=== PATIENT | female | born 1965 | race Caucasian/White ===

== ENCOUNTER 2016-06-06 17:22 | Inpatient (IN) ==
--- NOTE | 2016-06-06 18:23 | PROVIDER DOCUMENTATION ---
HPI-Chest Pain - General Chief Complaint: Chest Pain Stated Complaint: CP Time Seen by Provider: 06/06/16 18:20 Source: patient Allergies/Adverse Reactions: Patient Allergies Allergy/AdvReac Type Severity Reaction Status Date / Time cephalexin monohydrate * AdvReac NAUSEA/VOMI Verified 06/06/16 17:59 [From Keflex] TING codeine AdvReac NAUSEA/VOMI Verified 06/06/16 17:59 TING Home Medications: Home Medication List Medication Instructions Recorded Confirmed Last Taken Type Multivit with Calcium,Iron,Min 1 each PO DAILY 09/16/15 06/07/16 06/05/16 History [Multiple Vitamins For Women] Brexpiprazole [Rexulti] 0.5 mg PO DAILY 06/07/16 06/07/16 06/05/16 History ATORVAstatin [Lipitor] 80 mg PO QHS #0 tablet 06/09/16 Unknown Rx Acetaminophen [Tylenol] 650 mg PO Q6H PRN PRN #0 tablet 06/09/16 Unknown Rx Albuterol 2.5MG/Ipratrop 0.5MG 3 ml INH Q2H PRN PRN #0 neb 06/09/16 Unknown Rx [Duoneb (A & A)] Albuterol 2.5MG/Ipratrop 0.5MG 3 ml INH RTQ4H #0 neb 06/09/16 Unknown Rx [Duoneb (A & A)] Aspirin 81 mg PO DAILY #0 chewtab 06/09/16 Unknown Rx Azithromycin 500 mg/Ns [Zithromax 500 mg IV Q24H #7 ivpb 06/09/16 Unknown Rx 500 mg/Ns] CefTRIAXONE 1 GM/NS [Rocephin 1 1 gm IV Q24HR #7 ivpb 06/09/16 Unknown Rx gm/Ns] Chlordiazepoxide [Librium] 25 mg PO QHS #0 capsule 06/09/16 Unknown Rx Cilostazol [Pletal] 100 mg PO DAILY #0 tablet 06/09/16 Unknown Rx Clopidogrel [Plavix] 75 mg PO DAILY #0 tablet 06/09/16 Unknown Rx Diltiazem C.d. [Cardizem Cd] 240 mg PO DAILY #0 capsule 06/09/16 Unknown Rx Isosorbide Mononitrate E.r. [Imdur] 60 mg PO BID #0 tablet 06/09/16 Unknown Rx Levothyroxine [Synthroid] 100 microgm PO DAILY@07 #0 tablet 06/09/16 Unknown Rx Methylprednisolone Sod Succ 80 mg IV Q8H #0 vial 06/09/16 Unknown Rx [Solu-Medrol] Montelukast [Singulair] 10 mg PO DAILY #0 tablet 06/09/16 Unknown Rx Omeprazole [Prilosec] 20 mg PO DAILY@07 #0 capsule 06/09/16 Unknown Rx Ondansetron [Zofran] 4 mg IV Q4H PRN PRN #0 vial 06/09/16 Unknown Rx Ranolazine E.r. [Ranexa] 500 mg PO BID #0 tablet 06/09/16 Unknown Rx Sucralfate [Carafate Liquid] 1 gm PO Q6HR #0 udc 06/09/16 Unknown Rx Trazodone [Desyrel] 50 mg PO QHS #0 tablet 06/09/16 Unknown Rx Vortioxetine Hydrobromide 20 mg PO DAILY 06/09/16 Unknown Rx [Trintellix] - History of Present Illness-CP Nature of Presenting Problem: Pt is a 50 yof who presents to ER with CC of C/P with onset of 0. Pt reports that she was coughing hard before the chest pain started and her pain radiated to her jaw and reports that it felt like her last MT. Pt has hx of MT in October of last year and had 7 stents put in. 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 Pt also complains of N and pain on deep inspiration and reports that she was recently diagnosed with a URI and bronchitis and is currently taking antibiotics. Location: reports: central, epigastric Chest Pain Radiation: reports: jaw Quality of Pain: reports: tightness Severity in ED: moderate Onset/Duration: 1-3 hours ago Timing: improving Modifying Factors: worse with: coughing Associated Symptoms: reports: nausea, shortness of breath. denies: abdominal pain, back pain, diaphoresis, dizziness, edema, fatigue, fever/chills, headache , heartburn, rash, swelling/lump in chest, syncope, vomiting, weakness Nitro Today/Relief: no nitro taken today Aspirin Treatment Today: no aspirin today Similar Symptoms Previously?: Yes (MT in October of last year) Review of Systems - Adult - REVIEW OF SYSTEMS - ADULT Constitutional: denies: chills, fever, fatique, night sweats, weight gain, weight loss Eyes: reports: no symptoms reported Ears, Nose, Mouth & Throat: reports: no symptoms reported Cardiovascular: reports: chest pain, palpitations. denies: edema, heart murmur , irregular heart rate, orthopnea, poor circulation, PND, syncope Respiratory: reports: chronic cough, cough, dyspnea on exertion. denies: excessive sputum production, hemoptysis, pleurisy, shortness of breath, wheezing Gastrointestinal: reports: nausea. denies: abdominal pain, hematemesis, constipation, diarrhea, difficulty swallowing, frequent heartburn, poor appetite , rectal bleeding, vomiting Genitourinary: reports: no symptoms reported Musculoskeletal: reports: no symptoms reported Integumentary: reports: no symptoms reported Neurological: reports: no symptoms reported Psychiatric: reports: no symptoms reported Endocrine: reports: no symptoms reported Hematologic/Lymphatic: reports: no symptoms reported Allergic/Immunologic: reports: no symptoms reported All Other Systems: Reviewed and Negative Past History - Adult - PAST MEDICAL HISTORY-ADULT Review of Records: reports: Nursing Assessment Review, Medications Reviewed Additional History: taking blood thinner - IMMUNIZATION STATUS Childhood Immunizations: See Nurse Assessment Flu Vaccine: See Nurse Assessment Physical Exam-General - PHYSICAL EXAM-ADULT Initial Vital Signs Reviewed: Yes - CONSTITUTIONAL General Appearance: appears well, alert, mild distress, anxious. negative: no apparent distress, moderate distress, severe distress, cachetic, obese, thin, lethargic, slow to respond, obtunded, combative - NECK Neck: non-tender, full range of motion, supple. negative: C-spine tenderness, limited range of motion, lymphadenopathy - RESPIRATORY Respiratory: lungs clear, normal breath sounds. negative: chest non-tender, respiratory distress, decreased breath sounds, accessory muscle use, wheezing - CARDIOVASCULAR Cardiovascular: normal peripheral pulses, tachycardia. negative: regular rate, rhythm, bradycardia, diastolic murmur, systolic murmur, irregularly irregular - CHEST (BREASTS) Chest/Breast: no masses/lumps, tenderness (L sided chest tender on palpation). negative: no tenderness - GASTROINTESTINAL (ABDOMEN) Abdominal Exam: normal bowel sounds, non tender, soft. negative: tenderness, mass - SKIN Integumentary: normal color, normal turgor, warm/dry. negative: abrasion(s), erythema, laceration(s), swelling, tenderness - NEUROLOGIC Neurologic: grossly normal, no motor/sensory deficits. negative: focal weakness , motor weakness, sensory deficit - PSYCHIATRIC Psych/Mental Status: normal thought content, normal thought process, oriented x 3, anxious, disheveled. negative: normal mood/affect, disoriented x 3, depressed affect, paranoid, tearful Progress - PLAN OF CARE/RESULTS Progress/Plan/Lab Results: POC: Chest X-ray/Cardiac enzymes Vital Signs - 24 hr 06/06/16 06/06/16 17:25 18:37 Temperature 97.6 F Pulse Rate 112 H 100 H Respiratory 18 16 Rate Blood Pressure 191/66 142/67 O2 Sat by Pulse 96 95 Oximetry Orders Category Date Time Status Cardiac Monitoring DIRECTED Care 06/06/16 18:00 Active Saline Loc NOW Care 06/06/16 18:00 Active CHEST-2 VIEWS [RAD] Stat Exams 06/06/16 18:00 Taken CBC WITH ELECTRONIC DIFF [HEME] Stat Lab 06/06/16 17:50 Completed CK PROFILE [SP CHEM] Stat Lab 06/06/16 17:50 Completed COMPREHENSIVE METABOLIC PANEL [CHEM] Stat Lab 06/06/16 17:50 Completed MAGNESIUM [CHEM] Stat Lab 06/06/16 17:50 Completed PRO B-NATRIURETIC PEPTIDE Stat Lab 06/06/16 17:50 Completed PROTIME WITH INR [COAG] Stat Lab 06/06/16 17:50 Completed PTT [COAG] Stat Lab 06/06/16 17:50 Completed TROPONIN T Stat Lab 06/06/16 17:50 Completed Insulin Human Regular [Humulin R] Med 06/06/16 19:04 Discontinued 100 unit IV NOW ONE EKG [EKG] Stat Ther 06/06/16 17:25 Ordered EKG [EKG] Stat Ther 06/06/16 18:00 Ordered Laboratory Tests 06/06/16 06/06/16 06/06/16 17:50 17:50 17:50 WBC RBC Hgb Hct MCV MCH MCHC RDW Std Deviation Plt Count MPV Immature Gran % (Auto) Neut % (Auto) Lymph % (Auto) [place] % (Auto) Eos % (Auto) Baso % (Auto) Immature Gran # (Auto) Neut # (Auto) Lymph # (Auto) [place] # (Auto) Eos # (Auto) Baso # (Auto) PT 9.3 INR 0.91 PTT (Actin FS) 25.7 Sodium 130 L Potassium 4.3 Chloride 94 L Carbon Dioxide 18 L Anion Gap 18 BUN 21 Creatinine 0.9 Estimated GFR/1.73 m2 > 60 BUN/Creatinine Ratio 23 Glucose 448 H* Calculated Osmolality 283 Calcium 8.7 L Magnesium 1.9 Total Bilirubin 0.18 L AST 22 ALT 16 Alkaline Phosphatase 64 Creatine Kinase 55 Troponin T Jwi-[id number]-Dcwsedsfpft Pept 147 Total Protein 6.6 Albumin 3.8 Globulin 2.8 Albumin/Globulin Ratio 1.4 06/06/16 06/06/16 17:50 17:50 WBC 5.34 RBC 4.61 Hgb 14.4 Hct 41.8 MCV 90.7 MCH 31.2 H MCHC 34.4 RDW Std Deviation 13.1 Plt Count 259 MPV 10.2 Immature Gran % (Auto) 0.0 Neut % (Auto) 86.7 H Lymph % (Auto) 9.7 L [place] % (Auto) 3.4 Eos % (Auto) 0.0 Baso % (Auto) 0.2 Immature Gran # (Auto) 0.00 Neut # (Auto) 4.63 Lymph # (Auto) 0.52 L [place] # (Auto) 0.18 Eos # (Auto) 0.00 Baso # (Auto) 0.01 PT INR PTT (Actin FS) Sodium Potassium Chloride Carbon Dioxide Anion Gap BUN Creatinine Estimated GFR/1.73 m2 BUN/Creatinine Ratio Glucose Calculated Osmolality Calcium Magnesium Total Bilirubin AST ALT Alkaline Phosphatase Creatine Kinase Troponin T < 0.010 Eec-O-Vrspltcylrn Pept Total Protein Albumin Globulin Albumin/Globulin Ratio - EKG 1 Time of EKG reading by physician:: 17:26 EKG Read and Signed by:: Roger Zamarripa EKG Interpretation (*Must complete 3 of following elements*): Abnormal ( Possible L atrial enlargement) Rate: 110 Rhythm: Sinus tachycardia - XRAY 1 XRAY: Bilateral XRAY Study: Chest Impression: See EMR Report XRAY Interpretation: No acute findings - CONSULTS/PCP/HOSPITALIST Notification #1 *Consult/PCP/Hospitalist*: Dr. Marquez (Hospitalist) Time Discussed: 19:06 Consult Disposition: Admit Departure - Departure Time of Disposition Order: 19:06 DIAGNOSIS: Hyperglycemia Chest pain Qualifiers: Chest pain type: unspecified Qualified Code(s): R07.9 - Chest pain, unspecified HTN (hypertension) Qualifiers: Hypertension type: unspecified secondary hypertension Qualified Code(s): I15.9 - Secondary hypertension, unspecified Disposition: ADMITTED INPATIENT 09 Certified Medical Emergency: Emergent Condition: Stable Attestation - Scribe Verification/Attestation Scribe:: Bjorn Valdes Acting as Scribe for:: Jose Juarez Scribe documention review:: This chart was documented by a scribe and accurately reflects the service the provider performed and the decisions made by the provider.
[2016-06-06 18:30] LABS: BASO% 0.2 % (0.0-0.8); HEMATOCRIT 41.8 % (37.0-47.0); HEMOGLOBIN 14.4 g/dL (12.0-16.0); LYMPH# 0.52 X1000 (1.2-3.4); LYMPH% 9.7 % (20.5-51.1); MANUAL DIFF NEEDED? NO; MCH 31.2 PG (27-31); MCHC 34.4 g/dL (33-37); MCV 90.7 FL (81-99); MONO# 0.18 X1000 (0.11-0.59); MONO% 3.4 % (1.7-9.3); MPV 10.2 FL (7.4-10.4); NEUT% 86.7 % (42.2-75.2); PLT 259 X1000 (130-400); RBC 4.61 XMIL (4.2-5.4)
[2016-06-06 18:33] LABS: PROTIME 9.3 Seconds (9.2-11.7); PTT 25.7 Seconds (22.0-36.0)
[2016-06-06 18:34] LABS: INR 0.91
[2016-06-06 18:44] LABS: AGAP 18; ALBUMIN 3.8 g/dL (3.5-5.0); ALKALINE PHOSPHATASE 64 U/L (32-104); BUN 21 mg/dL (8-22); CALCIUM 8.7 mg/dL (8.8-10.2); CHLORIDE 94 mmol/L (98-107); CK PROFILE 55 U/L (24-173); COSMO 283; GOT 22 U/L (10-30); GPT 16 U/L (10-36); MAGNESIUM 1.9 mg/dL (1.5-2.7); POTASSIUM 4.3 mmol/L (3.5-5.1); SODIUM 130 mmol/L (136-145); TCO2 18 mmol/L (25-35); TOTAL BILIRUBIN 0.18 mg/dL (0.20-1.00); TOTAL PROTEIN 6.6 g/dL (6.3-8.3)
[2016-06-06] MEDS ORDERED: HUMULIN R IV ONE ×3 (19:04→19:49)
[2016-06-06] MEDS ORDERED: NITROGLYCERIN TOP ONE (19:08)
[2016-06-06] MEDS ORDERED: MORPHINE IV ONE (19:08)
[2016-06-06] MEDS ORDERED: ZOFRAN IV ONE (19:08)
[2016-06-06] MEDS ORDERED: NS 1,000 ML IV ONE ×2 (19:49→23:30)
--- NOTE | 2016-06-06 21:07 | HISTORY AND PHYSICAL ---
Patient of Dr. Ellsworth's office. REASON FOR ADMISSION: Chest pain 3 hours ago. HISTORY OF PRESENT ILLNESS: Ms. Nichols is a 50-year-old lady with past medical history of coronary artery disease status post 6 stents, type 1 diabetes uncontrolled, hypertension, hypothyroidism, hyperlipidemia, seasonal allergic rhinitis, GERD who comes in today after a 3 hour episode of retrosternal chest pain radiating to her jaw associated with tightness of her throat. She oddly enough denies any shortness of breath, palpitations, nausea, vomiting, diaphoresis. No antecedent leg swelling, pain. No PND or orthopnea. Two few days ago she was treated at urgent care center for bronchitis and was given Z-Robert and steroids. Subsequently she has been having polyuria, polydipsia along with this but not very severe. She also has been coughing up yellowish sputum and has had a subjective low-grade fever. This was all preceded by 4-day history of upper respiratory symptoms i.e. ocular nasal pruritus, postnasal drip. REVIEW OF SYSTEMS: Patient denies any GI or complaints. No neurological complaints of note. Her 12 system review is negative. Positive findings per HPI. ALLERGIES: Cephalosporins and codeine. HOME MEDICATIONS: She is on aspirin 81 mg daily, Wellbutrin 300 mg daily, Invokana 100 mg daily, Pletal 100 mg daily, Plavix 75 mg daily, Dexilant 60 mg daily, Cardizem CD 240 mg daily, Prozac 20 mg b.i.d. , Imdur 60 mg b.i.d., Singulair 10 mg daily, tablets once a day, pravastatin 20 mg daily, Ranexa 500 mg daily, levothyroxine 100 mcg daily. Insulin pump she takes 1 unit a day. FAMILY HISTORY: Of heart disease in her father. Melanoma in first-degree relatives, first- degree relatives also with type 1 diabetes. SURGICAL HISTORY: She has had bilateral carpal tunnel trigger finger release, had laser surgery to her eye and right foot surgery and 6 stents her eye. SOCIAL HISTORY: She is and does not smoke or use illicit drugs but admits to drinking about 6 glasses of wine a day and is trying to quit this in a detox program. LAB WORK: White count 5000, hemoglobin and hematocrit 14, 41, platelets 259,000. Sodium 130, BUN 21, creatinine 0.9, bicarb 18, anion gap 18, glucose 448, magnesium 1.9. Troponin is normal. CK is normal. PT, PTT normal. EKG. Sinus tachycardia. Heart rate of 110, possible left atrial enlargement. Checks x-ray has not been dictated and is pending at this time. PHYSICAL EXAMINATION: VITAL SIGNS: Blood pressure is 142/69, heart rate 100, respirations 16, temperature is 97.6, 95% room air. GENERAL: She is a middle-aged woman not in acute distress. She is A, O x3. Normal mood and affect. HEENT: Head is normocephalic, atraumatic. LYNSEY, EOMI. Is anicteric and not pale. ENT exam is grossly normal. NECK: Supple. No JVD or carotid bruit, no thyromegaly. CHEST: Clear to auscultation both lung ennis. CARDIOVASCULAR: First and second heart sounds heard, 2/6 systolic murmur heard in all areas, rhythm is regular. ABDOMEN: Protuberant, soft, nontender, megaly, bowel sounds normal. RECTAL: Deferred at this time. EXTREMITIES: Pulses distally intact with good volume and symmetrical, no edema, clubbing or peripheral cyanosis. NEUROLOGIC SYSTEM: Grossly intact. No focal deficits. SKIN: Intact. No breakdown, lesions. MUSCULAR EXAM: Grossly normal. ASSESSMENT: 1. Chest pain syndrome in patient with coronary artery disease. 2. Uncontrolled diabetes type 1 patient with aggravated by steroid treatment. 3. Hypertension. 4. Hyperlipidemia. 5. Seasonal allergic rhinitis. 6. Acute bronchitis. 7. Hypothyroidism. 8. Peripheral arterial disease probable. PLAN: At this time will do serial cardiac enzymes, continue patient on antiplatelet therapy. Optimize her statin therapy by switching from Pravachol to Lipitor. Optimize the dose of Ranexa increasing from 500 daily to 500 b.i.d. Will consult cardiology see patient. Patient has a new onset systolic murmur. Will get an echocardiogram to evaluate this. Will need further cardiology and further plan of assessment of patient's chest pain. Strongly recommend this patient be on ARB or BOZENA being that she has documented retinopathy follow urinalysis to see there is any significant degree of proteinuria. Patient will be on a sliding scale as she has very labile sugars and will aggressively hydrate patient in light of her hyperglycemia. Deep vein thrombosis prophylaxis will be with Lovenox.
[2016-06-06] MEDS ORDERED: ATIVAN IV PRN (23:30)
[2016-06-06] MEDS ORDERED: HUMALOG SUBQ SCH (23:30)
[2016-06-06] MEDS ORDERED: NITROGLYCERIN TOP SCH (23:30)
[2016-06-06] MEDS ORDERED: RANEXA PO SCH (23:30)
[2016-06-06] MEDS: DUONEB (A & A) INH SCH (23:30)
[2016-06-06] MEDS ORDERED: TYLENOL PO PRN (23:30)
[2016-06-06] MEDS ORDERED: MORPHINE IV PRN (23:30)
[2016-06-06] MEDS ORDERED: LIPITOR PO SCH (23:30)
[2016-06-06] MEDS ORDERED: LOVENOX SUBQ SCH (23:30)
[2016-06-06] MEDS ORDERED: ZOFRAN IV PRN (23:30)
[2016-06-06] MEDS ORDERED: THIAMINE 100 MG in NS 50 ML IV ONE (23:30)
[2016-06-07 00:35] LABS: HEMOGLOBIN A1C 8.1 % (4.8-6.0)
[2016-06-07 01:01] LABS: URINE MICRO REVIEW NEEDED? NO; URINE SOURCE VOIDED
[2016-06-07 01:03] LABS: BILIRUBIN URINE NEGATIVE (NEGATIVE); BLOOD URINE NEGATIVE (NEGATIVE); COLOR STRAW; GLUCOSE URINE >1000 mg/dL (NEGATIVE); LEUKOCYTES URINE NEGATIVE (NEGATIVE); NITRITE URINE NEGATIVE (NEGATIVE); PROTEIN URINE NEGATIVE (NEGATIVE); TURBIDITY URINE CLEAR (CLEAR); UROBILINOGEN URINE NORMAL (NORMAL)
[2016-06-07 01:05] LABS: UR EPITHELIAL CELLS <10 /HPF (<10); URINE BACTERIA NEGATIVE /HPF; URINE RBC <10 /HPF (<10); URINE WBC <10 /HPF (<10)
[2016-06-07 04:16] LABS: MANUAL DIFF NEEDED? NO
[2016-06-07 04:42] LABS: BASO% 0.2 % (0.0-0.8); HEMATOCRIT 37.7 % (37.0-47.0); HEMOGLOBIN 12.5 g/dL (12.0-16.0); IMM GRAN# 0.01 X1000 (0.0-0.04); IMM GRAN% 0.2 % (0.0-0.5); LYMPH# 0.67 X1000 (1.2-3.4); LYMPH% 13.6 % (20.5-51.1); MCH 30.3 PG (27-31); MCHC 33.2 g/dL (33-37); MCV 91.5 FL (81-99); MONO# 0.46 X1000 (0.11-0.59); MONO% 9.3 % (1.7-9.3); NEUT% 76.7 % (42.2-75.2); PLT 250 X1000 (130-400); RBC 4.12 XMIL (4.2-5.4)
[2016-06-07 05:00] LABS: AGAP 17; ALBUMIN 3.5 g/dL (3.5-5.0); ALKALINE PHOSPHATASE 52 U/L (32-104); BUN 18 mg/dL (8-22); CALCIUM 8.4 mg/dL (8.8-10.2); CHLORIDE 100 mmol/L (98-107); COSMO 277; GOT 14 U/L (10-30); GPT 12 U/L (10-36); POTASSIUM 4.2 mmol/L (3.5-5.1); SODIUM 134 mmol/L (136-145); TCO2 17 mmol/L (25-35); TOTAL BILIRUBIN < 0.15 mg/dL (0.20-1.00); TOTAL PROTEIN 5.5 g/dL (6.3-8.3)
[2016-06-07] MEDS: DUONEB (A & A) INH SCH ×4 (05:22→21:45)
[2016-06-07] MEDS ORDERED: NS 1,000 ML IV ONE (06:00)
[2016-06-07] MEDS: NITROGLYCERIN TOP SCH ×3 (06:02→18:36)
[2016-06-07] MEDS: HUMALOG DOSE (PARKWAY) SUBQ SCH ×4 (06:02→20:51)
[2016-06-07] MEDS ORDERED: PLETAL PO SCH (09:00)
[2016-06-07] MEDS ORDERED: CARDIZEM CD PO SCH (09:00)
[2016-06-07] MEDS ORDERED: PLAVIX PO SCH (09:00)
[2016-06-07] MEDS ORDERED: PRILOSEC PO SCH (09:00)
[2016-06-07] MEDS ORDERED: THERA M PLUS PO SCH (09:00)
[2016-06-07] MEDS ORDERED: ASPIRIN PO SCH ×2 (09:00)
[2016-06-07] MEDS ORDERED: SYNTHROID PO SCH (09:00)
[2016-06-07] MEDS ORDERED: WELLBUTRIN PO SCH (09:00)
--- NOTE | 2016-06-07 09:20 | EKG Report ---
Test Performed on : 06/06/2016 5:26:54 PM Test Reason : CP Blood Pressure : / mmHG Vent. Rate : 110 BPM Atrial Rate : 110 BPM P-R Int : 160 ms QRS Dur : 080 ms QT Int : 314 ms P-R-T Axes : 067 050 049 degrees QTc Int : 424 ms Sinus tachycardia. Possible Left atrial enlargement Borderline ECG When compared with ECG of 30-OCT-2015 00:09, T wave amplitude has increased in Lateral leads Unconfirmed Result
--- NOTE | 2016-06-07 09:32 | Diag Imaging Result Document ---
PROCEDURE NAME: CHEST-2 VIEWS - 06/06/2016 CHEST 2 VIEWS: Compared with 10/27/2015. FINDINGS: Heart size is normal. There is apparent mild infiltrate at the right upper lobe. However, there are some artifacts near the apparent infiltrate, it is possible that the infiltrate could be artifactual. The remainder of the lungs appear clear. There is no pleural effusion or pneumothorax identified. IMPRESSION: Mild right upper lobe infiltrate versus artifact. Followup is recommended.
[2016-06-07] MEDS: PLETAL PO SCH (09:41)
[2016-06-07] MEDS: MULTI-VITAMIN PO SCH (09:41)
[2016-06-07] MEDS: WELLBUTRIN XL PO SCH (09:41)
[2016-06-07] MEDS: CARDIZEM CD PO SCH (09:42)
[2016-06-07] MEDS: PROZAC PO SCH ×2 (09:43→20:53)
[2016-06-07] MEDS: PRILOSEC PO SCH (09:45)
[2016-06-07] MEDS: RANEXA PO SCH ×2 (09:48→20:52)
[2016-06-07] MEDS: SYNTHROID PO SCH (09:48)
[2016-06-07] MEDS: PLAVIX PO SCH (09:48)
[2016-06-07] MEDS: TYLENOL PO PRN ×2 (10:41→19:29)
[2016-06-07] MEDS: MORPHINE IV PRN (13:38)
[2016-06-07] MEDS: ATIVAN IV PRN (13:39)
[2016-06-07] MEDS ORDERED: G.I. COCKTAIL PO PRN (18:21)
[2016-06-07] MEDS: CARAFATE LIQUID PO SCH (19:28)
--- NOTE | 2016-06-07 20:20 | CONSULTATION ---
DATE OF CONSULTATION: 06/07/2016 PRIMARY DOCTOR: Troy Ellsworth MD CONSULTATION REQUESTED BY: Domenic Hawk MD, Hospital Service at [facility]. REASON FOR CONSULTATION: Chest pain, angina pectoris, possibly unstable. HISTORY OF PRESENT ILLNESS: Ms. Nichols was in her usual state of health up until 06/04/2016. At that time she noted that she started having cough (nonproductive ) associated with some dyspnea. She went and called Dr. Ellsworth who in turn called in some [facility] for her, however, the next morning she really felt very poorly and decided to go to the [facility] outpatient urgent care where they gave her a shot of steroids, gave her a prescription for doxycycline, an inhaler, and also some Medrol Dosepak. She took all those medications and on 06/06/2016, at about 5 p.m. she was sitting down and all of a sudden she started having very severe chest pain, tightness around the throat, around the jaw from ear to ear. This was so severe that it took her completely off guard. She forgot to take her nitroglycerin. Within 10 minutes she was driven to the emergency room by her . They did an EKG at the time of initial presentation at 5:26 p.m. That EKG showed no acute ischemic changes. They have done several sets of cardiac enzymes, all of which have come back negative. Her initial blood sugar at the time of presentation was 448. Subsequently the sugar has come down to 213. Her pro BNP was normal. They did a chest x-ray at the time of presentation that showed mild right upper lobe infiltrate versus artifact. Her white cell count was normal. After admission the pain settled and this morning she woke up feeling more relief. She is still coughing and her phlegm sounds a little more loose. The patient is definitely feeling better. PAST MEDICAL HISTORY: Her past history is significant for severe coronary heart disease. She has had a number of stents over the years. The last 2 episodes happened in 2013 when she received a stent to the right coronary artery and another one to the LAD. In 2014 she had to go back to [facility] and Dr. Cavazos performed a stent to the mid segment of the LAD for in- stent restenosis. In 2015, October, the patient developed an episode of severe ketoacidosis and her enzymes came back positive. She was sent to [place] for followup cardiac catheterization that was done by Dr. Harding on 10/31/2015. At that time he described a 40% proximal LAD stenosis, 20% proximal circumflex stenosis, right coronary artery had patent stent, less than 20% stenosis. Ejection fraction was normal. The patient has been doing well since then. Her major limitation at this time appears to be claudication. She has history of hypertension, hyperlipidemia, diabetes mellitus type 2, on insulin pump. She has hypothyroidism. PAST SURGICAL HISTORY: Her surgery history includes the following. She has had carpal tunnel syndrome, eye surgery, wrist surgery, tonsillectomy, cholecystectomy. FAMILY HISTORY: Positive for heart attack in parents. SOCIAL HISTORY: She has been working for [employer] in [place]. Her history is that in October she went on sick leave and she has not returned to work. She has been to her for 13 years. She has no children. HOME MEDICATIONS: Her home medications listed at this time included the followin. Prednisone 4 mg as directed. 2. Trintellix 20 mg daily. 3. Doxycycline 100 twice a day. 4. Trazodone 50 mg at bedtime. 5. Pravastatin 20 mg daily. 6. Multivitamin daily. 7. Montelukast 20 mg daily. 8. Levothyroxine 100 mcg daily. 9. Isosorbide mononitrate 50 mg twice a day. 10.Diltiazem 240 daily. 11.Dexilant 60 mg daily. 12.Plavix 75 mg daily. 13.Cilostazol 100 mg daily. 14.Invokana 100 mg daily. 15.Aspirin 81 mg daily. 16.Synthroid 100 mcg daily. ALLERGIES: Codeine, cephalexin. REVIEW OF SYSTEMS: Beyond what I have reported, the main issue with her at this time appears to be claudication which is being followed by Vascular Surgery. Also, she is seeing a doctor in [place] for management of psoriasis. She is taking Enbrel for it. PHYSICAL EXAMINATION: VITAL SIGNS: Today blood pressure is 113/69, temperature 99.7, pulse 97, respirations 22. GENERAL: Awake, alert, oriented, in no distress. HEENT: Unremarkable. CHEST: Scattered rhonchi. Scattered crepitus. Very rare wheezes. CARDIAC: Heart sounds are regular and rhythmic. She does have a systolic murmur, 2/6, at the level of the aortic area. ABDOMEN: Nontender. No masses. No hepatomegaly. EXTREMITIES: No edema. She has decreased pulses. I can barely feel the posterior tibialis pulses. NEUROLOGIC: She moves four extremities, equal strength in upper and lower extremities. Cranial nerves normal. IMPRESSION: 1. Patient presented to the hospital with sudden onset of severe chest pain. Given her history of severe coronary heart disease, the possibility of unstable angina pectoris or unstable coronary syndrome needs to be entertained. However, the sequence of events is that she developed first an upper respiratory infection, then she was given a shot of steroids and she took antibiotics. I strongly suspect that she may have some gastroesophageal spasm or reflux which is mimicking an acute coronary syndrome. 2. History of severe coronary heart disease, multiple stents to left anterior descending and right coronary artery over the course of several years. 3. Uncontrolled diabetes mellitus. Her hemoglobin A1c is 8.1. Her glucose on presentation was 448. Certainly the steroids may have made this hyperglycemia worse. 4. History of psoriasis, presently taking Enbrel. 5. History of hyperlipidemia. 6. Hypothyroidism. RECOMMENDATIONS: We will proceed with giving her some Carafate, some GI cocktail. We will arrange for a Lexiscan myocardial perfusion study. The patient has no history of asthma or history of smoking. If the stress test is negative, I will probably consider referring her to a orthopedic brace maker because of the possibility of candidiasis of the esophagus. The patient is taking Enbrel which may have an mmunosuppressant agent and also taking a shot of steroids which may favor the contamination of the esophagus by yeast. At any rate, we will follow her along with you. I must mention that the patient had an echocardiogram done today and I have reviewed it. I do not see any evidence of any wall motion abnormality. In addition, there is a suggestion of a gradient across the outflow tract of the left ventricle of mild severity suggesting some degree of aortic stenosis or outflow trace stenosis. This should be probably followed down the road as an outpatient. Thank you again for the opportunity to participate in her evaluation. [facility] HOSPITALTyrell
[2016-06-07] MEDS: LIPITOR PO SCH (20:52)
[2016-06-07] MEDS: LIBRIUM PO SCH (20:55)
[2016-06-07] MEDS: DOXYCYCLINE PO SCH (20:55)
[2016-06-07] MEDS: ZOFRAN IV PRN (20:57)
[2016-06-07] MEDS ORDERED: PROZAC PO SCH (21:00)
[2016-06-07] MEDS ORDERED: LOVENOX SUBQ SCH (21:00)
[2016-06-08] MEDS: NITROGLYCERIN TOP SCH ×3 (00:19→06:36)
[2016-06-08] MEDS: CARAFATE LIQUID PO SCH ×4 (01:05→19:22)
[2016-06-08] MEDS: DUONEB (A & A) INH SCH ×4 (03:30→21:10)
[2016-06-08] MEDS: ZOFRAN IV PRN ×3 (04:20→19:23)
[2016-06-08] MEDS: MORPHINE IV PRN ×2 (04:21→22:33)
--- NOTE | 2016-06-08 06:23 | EKG Report ---
Test Performed on : 06/08/2016 05:58:09 AM Test Reason : chest pain,ASHD Blood Pressure : / mmHG Vent. Rate : 105 BPM Atrial Rate : 105 BPM P-R Int : 154 ms QRS Dur : 076 ms QT Int : 336 ms P-R-T Axes : 069 062 042 degrees QTc Int : 444 ms Sinus tachycardia. Possible Left atrial enlargement Borderline ECG When compared with ECG of 06-JUN-2016 17:26, (Unconfirmed) No significant change was found Unconfirmed Result
[2016-06-08] MEDS ORDERED: G.I. COCKTAIL PO PRN (06:44)
[2016-06-08] MEDS: HUMALOG DOSE (PARKWAY) SUBQ SCH ×4 (06:48→22:38)
[2016-06-08] MEDS: PRILOSEC PO SCH ×2 (07:07→08:12)
[2016-06-08] MEDS: SYNTHROID PO SCH ×2 (07:08→08:12)
[2016-06-08] MEDS ORDERED: PREDNISONE 4 MG PO SCH (07:45)
[2016-06-08] MEDS: DOXYCYCLINE PO SCH ×2 (08:12→21:29)
[2016-06-08] MEDS: MULTI-VITAMIN PO SCH (08:12)
[2016-06-08] MEDS: CARDIZEM CD PO SCH (08:13)
[2016-06-08] MEDS: PROZAC PO SCH (08:15)
[2016-06-08] MEDS: WELLBUTRIN XL PO SCH (08:16)
[2016-06-08] MEDS: RANEXA PO SCH ×2 (08:16→21:30)
[2016-06-08] MEDS: PLETAL PO SCH (08:25)
[2016-06-08] MEDS: SINGULAIR PO SCH (08:27)
[2016-06-08] MEDS: NON-FORMULARY MED (Vortioxetine Hydrobromide [Trintellix] 20 MG) PO SCH (08:35)
[2016-06-08] MEDS: REGLAN IV SCH ×3 (08:35→23:37)
--- NOTE | 2016-06-08 08:39 | PROGRESS NOTE ---
DATE: 06/08/2016 SUBJECTIVE: The patient denies any current chest pain. She states that she is nauseated, having some episodes of emesis overnight. Denies any blood in her emesis. Denies any diarrhea. Denies any fevers or chills. PHYSICAL EXAMINATION: Vital Signs: Temperature 98, pulse 98, respiratory rate 21, BP 121/60, saturation 94% on 2 L. General: Patient is a well developed, overweight female who is currently in no respiratory distress. She is nauseated and has been spitting up in the emesis basin. The patient awake alert, oriented. Neck: Supple. CV: Regular rate. Chest: Relatively clear. Abdomen: Soft. Extremities: Moves all extremities. LABORATORY DATA: Essentially normal with a glucose elevated in the mid 200s. ASSESSMENT: 1. Nausea and vomiting with a known history of diabetic gastroparesis. We will start Reglan. 2. Diabetes with elevated blood sugars, likely causing her nausea and vomiting secondary to her previous diagnosis of gastroparesis. 3. Chest pain, appears resolved. I believe this is more likely secondary to gastrointestinal issues and not cardiac. Unfortunately, we will have to stop her Lexiscan this morning as she is too nauseated to go through with the test. 4. Chronic anxiety, certainly contributing to her nausea. 5. Hypothyroidism. 6. Known coronary artery disease with a previous myocardial infarction but with negative enzymes and her pain is resolved. 7. Others. PLAN: We will continue patient's home medication. We will stop her Lexiscan this morning. Interestingly, the patient notes that she would be unable to walk on the treadmill, although she is able to ambulate in the room without much difficulty. She believes that walking on the treadmill will make her stress test positive as that is what happened the last time when she had an RI. I attempted to discuss with the patient the reasons for walking rather than chemical but as noted, we will hold her stress test today secondary to her nausea. We will continue to follow. We will move her out to the floor. Attempt Reglan to see if this will help her stomach. We will restart her home Dexilant and allow her to start drinking diabetic liquids.
[2016-06-08] MEDS: IMDUR PO SCH ×2 (08:45→21:30)
[2016-06-08] MEDS: INVOKANA PO SCH (08:45)
[2016-06-08] MEDS: PLAVIX PO SCH (09:25)
[2016-06-08] MEDS: ASPIRIN PO SCH (09:30)
[2016-06-08] MEDS: PATIENT'S OWN MED PO SCH (10:34)
[2016-06-08] MEDS ORDERED: NS 1,000 ML IV SCH (11:15)
[2016-06-08] MEDS: ATIVAN IV PRN ×2 (11:28→19:22)
[2016-06-08] MEDS: TYLENOL PO PRN ×2 (12:19→21:39)
[2016-06-08] MEDS ORDERED: DESYREL PO SCH (21:00)
[2016-06-08] MEDS ORDERED: PRAVACHOL PO SCH (21:00)
[2016-06-08] MEDS: LIBRIUM PO SCH (21:30)
[2016-06-08] MEDS: LIPITOR PO SCH (21:30)
[2016-06-09] MEDS: CARAFATE LIQUID PO SCH ×3 (02:56→16:12)
[2016-06-09] MEDS: DUONEB (A & A) INH SCH ×4 (03:54→16:21)
[2016-06-09] MEDS: MORPHINE IV PRN (04:38)
[2016-06-09] MEDS: ATIVAN IV PRN (05:08)
[2016-06-09] MEDS: HUMALOG DOSE (PARKWAY) SUBQ SCH ×3 (06:00→16:15)
[2016-06-09] MEDS ORDERED: LASIX ONE (07:58)
--- NOTE | 2016-06-09 08:08 | PROGRESS NOTE ---
DATE: 06/09/2016 SUBJECTIVE: Patient states she feels terrible this morning. She initially said she cannot talk, and then is able to tell me her history. She is having increased shortness of breath, increased cough, increased congestion. Her notes that she had lots of sedation overnight after she received pain medication. PHYSICAL: Vital Signs: Reviewed. General: Patient is well developed. She is in moderate respiratory distress this morning with wheezing and crackles on her exam, decreased air movement. She is sitting upright in the bed with her eyes closed. She does not open her eyes to talk. She took her oxygen off because she stated that made her short of breath. HEENT: Normocephalic, atraumatic. Neck: Supple. CV: Regular rate. Chest: Decreased breath sounds. Positive wheezing. Positive rhonchi throughout. Abdomen: Soft. Extremities: Moves all extremities. Neurologic: No changes. ASSESSMENT: 1. Acute bronchitis. Patient has a history of frequent episodes of bronchitis. 2. Chest pain. Appears to be improved. She has a known history of coronary artery disease, but her enzymes have been negative. She refused to have a stress test yesterday morning, because she was too nauseated. 3. Type 1 diabetes. We will continue to follow. Patient most likely is going to need IV steroids, which certainly would elevate her blood sugar. 4. Hypothyroidism, stable. PLAN: We will check a chest x-ray. Give her dose of Lasix. Saline lock her. Will check a D- dimer, BNP and continue to follow.
--- NOTE | 2016-06-09 09:33 | EKG Report ---
Test Performed on : 06/09/2016 08:57:27 AM Test Reason : sob/chf Blood Pressure : / mmHG Vent. Rate : 110 BPM Atrial Rate : 110 BPM P-R Int : 142 ms QRS Dur : 080 ms QT Int : 348 ms P-R-T Axes : 071 078 058 degrees QTc Int : 470 ms Sinus tachycardia. Nonspecific ST abnormality Abnormal ECG When compared with ECG of 08-JUN-2016 05:58, (Unconfirmed) No significant change was found Unconfirmed Result
[2016-06-09 09:51] LABS: HEMATOCRIT 43.4 % (37.0-47.0); MCH 30.6 PG (27-31); MCHC 32.3 g/dL (33-37); MPV 9.9 FL (7.4-10.4); RBC 4.57 XMIL (4.2-5.4)
[2016-06-09 10:11] LABS: CHLORIDE 90 mmol/L (98-107); POTASSIUM 5.2 mmol/L (3.5-5.1); SODIUM 129 mmol/L (136-145); TCO2 4 mmol/L (25-35)
[2016-06-09 10:12] LABS: AGAP 35; BUN 27 mg/dL (8-22); CALCIUM 8.3 mg/dL (8.8-10.2); COSMO 275
[2016-06-09 10:13] LABS: ALBUMIN 3.9 g/dL (3.5-5.0); ALKALINE PHOSPHATASE 69 U/L (32-104); GOT 23 U/L (10-30); GPT 17 U/L (10-36); TOTAL PROTEIN 6.5 g/dL (6.3-8.3)
[2016-06-09] MEDS ORDERED: SOLU-MEDROL ONE (10:13)
[2016-06-09] MEDS: INVOKANA PO SCH (10:24)
[2016-06-09] MEDS: REGLAN IV SCH ×2 (10:24→16:21)
--- NOTE | 2016-06-09 10:32 | Diag Imaging Result Document ---
PROCEDURE NAME: CHEST-2 VIEWS - 06/09/2016 FRONTAL AND LATERAL CHEST, TWO VIEWS: COMPARISON: 06/06/2016. FINDINGS: There are multifocal dense bilateral infiltrates. Findings are much more pronounced than on the prior exam. The heart is not enlarged. No pleural effusions. The vessels are not distended. IMPRESSION: Development of dense bilateral multifocal infiltrates.
[2016-06-09] MEDS: PRILOSEC PO SCH (10:57)
[2016-06-09] MEDS: ASPIRIN PO SCH (10:57)
[2016-06-09] MEDS: SYNTHROID PO SCH (10:57)
[2016-06-09] MEDS: CARDIZEM CD PO SCH (10:58)
[2016-06-09] MEDS: MULTI-VITAMIN PO SCH (10:58)
[2016-06-09] MEDS: DOXYCYCLINE PO SCH (10:58)
[2016-06-09] MEDS: IMDUR PO SCH (10:58)
[2016-06-09] MEDS: PATIENT'S OWN MED PO SCH (10:58)
[2016-06-09] MEDS: PLAVIX PO SCH (10:59)
[2016-06-09] MEDS: NON-FORMULARY MED (Vortioxetine Hydrobromide [Trintellix] 20 MG) PO SCH (10:59)
[2016-06-09] MEDS: PLETAL PO SCH (10:59)
[2016-06-09] MEDS: SINGULAIR PO SCH (10:59)
[2016-06-09] MEDS: RANEXA PO SCH (10:59)
[2016-06-09] MEDS ORDERED: DUONEB (A & A) INH PRN ×2 (11:13→11:22)
[2016-06-09] MEDS ORDERED: LASIX IV ONE (11:15)
[2016-06-09] MEDS ORDERED: ROCEPHIN 1 GM/NS 50 ML IV SCH (11:15)
[2016-06-09] MEDS ORDERED: ZITHROMAX 500 MG/NS 250 ML IV SCH (11:30)
[2016-06-09 13:32] LABS: BE -24.8 mmoll (-3.0-3.0); BLOOD TYPE ARTERIAL; DRAW SITE L BRACHIAL; METHB 1.3 % (0.0-1.5); O2(CT) 19.7 mL/dL (15.0-23.0); PO2(98.6) 125 mmHg (60-100); SAMPLE BLOOD; THB 14.5 g/dL (11.5-17.4)
[2016-06-09 13:35] LABS: ALLEN TEST NO; MODALITY VENTIMASK; PCO2(98.6) 16 mmHg (35-45); pH(98.6) 7.03 (7.35-7.45)
[2016-06-09 14:22] LABS: MANUAL DIFF NEEDED? NO
[2016-06-09 14:44] LABS: BASO% 0.2 % (0.0-0.8); HEMATOCRIT 44.6 % (37.0-47.0); HEMOGLOBIN 14.6 g/dL (12.0-16.0); IMM GRAN# 0.05 X1000 (0.0-0.04); IMM GRAN% 0.5 % (0.0-0.5); LYMPH% 7.3 % (20.5-51.1); MCH 30.5 PG (27-31); MCHC 32.7 g/dL (33-37); MCV 93.1 FL (81-99); MONO# 0.48 X1000 (0.11-0.59); MONO% 4.4 % (1.7-9.3); MPV 9.5 FL (7.4-10.4); NEUT% 87.6 % (42.2-75.2); PLT 311 X1000 (130-400); RBC 4.79 XMIL (4.2-5.4)
[2016-06-09 14:49] LABS: CALCIUM 8.1 mg/dL (8.8-10.2); POTASSIUM 4.6 mmol/L (3.5-5.1)
[2016-06-09 15:57] LABS: URINE CULTURE PL NEEDED? NO; URINE SOURCE CATH
[2016-06-09 16:00] LABS: BILIRUBIN URINE NEGATIVE (NEGATIVE); BLOOD URINE NEGATIVE (NEGATIVE); CLARITY CLEAR (CLEAR); COLOR YELLOW; LEUKOCYTES URINE NEGATIVE (NEGATIVE); NITRITE URINE NEGATIVE (NEGATIVE); PROTEIN URINE TRACE mg/dL (NEGATIVE); SP GRAVITY URINE 1.015; UROBILINOGEN URINE NORMAL
[2016-06-09 16:11] LABS: URINE CAST GRANULAR PRESENT /LPF; URINE EPITHELIAL CELLS <10 /HPF (<10); URINE WBC <10 /HPF (<10)
[2016-06-09] MEDS ORDERED: D50W SYRINGE IV PRN (16:26)
[2016-06-09] MEDS ORDERED: MAGNESIUM SULFATE 2 GM/S.W.I. 50 ML IV PRN (16:26)
[2016-06-09] MEDS ORDERED: HUMULIN R IV ONE (16:26)
[2016-06-09] MEDS ORDERED: HUMULIN R 100 UNIT in NS 99 ML IV SCH (16:26)
[2016-06-09 16:38] VITALS: BP 146/68
--- NOTE | 2016-06-09 17:19 | PROGRESS NOTE ---
DATE: 06/09/2016 SUBJECTIVE: Ms. Nichols is somewhat somnolent today. She currently has a BiPAP in place. PHYSICAL EXAMINATION: Vital Signs: She is afebrile. Heart rates have been in the low 100s. Blood pressure 146/68. Generally: She is somewhat ill-appearing, somnolent, difficult to get to arouse. Chest exam: She has coarse bilateral breath sounds somewhat diffusely. She is somewhat tachypneic. Abdomen: Soft, nontender, nondistended. She has no obvious organomegaly. Skin Exam: Warm and dry throughout. Cardiovascular: She has mildly tachycardic rhythm but regular. PERTINENT DATA: White count is 11, hematocrit is 44.6, platelet count 311,000. D-dimer is 0.53. Her ABG shows a pH of 7.03, pCO2 of 16, PO2 125. Sodium 131, potassium 4.6, BUN is 28, creatinine 1.3. Her glucose was 278. Her proBNP was 2819. ASSESSMENT: 1. Suggestion of DKA. 2. Presumptive pneumonia. PLAN: Patient is to be transferred over to [facility] for management there as we do not have access to Pulmonology over here. Patient needs aggressive resuscitation of DKA prior to any further cardiac evaluation. She had an EKG today that does not show any clear evidence of ischemic change. She is nonspecific diffuse mild ST-segment depression. Tentative plans previously were to pursue myocardial perfusion imaging however, given her current clinical situation she needs resuscitation of her DKA prior to any cardiac evaluation.
--- NOTE | 2016-06-09 17:40 | ECHO REPORT ---
ORDER DATE: 06/07/2016 MEASUREMENTS: Left ventricular end-diastolic diameter 4.3, end-systolic diameter 2.8. Posterior wall thickness 0.8, septal thickness 0.8, left atrium 3.7, aortic root 3.3. SUMMARY: 1. Adequate quality acoustic windows. 2. Trileaflet aortic valve demonstrates sclerotic changes but opens adequately on 2 dimensional images. Peak gradient across the aortic valve by Doppler is 19 mmHg with a mean gradient of 10 mmHg. There is no significant aortic regurgitation. Mitral, tricuspid and pulmonic valves are without evidence of structural abnormality with trace mitral regurgitation and trace tricuspid regurgitation. The aortic root is normal in size. 3. Normal left ventricle dimensions evident. Estimated left ejection fraction approximately 60%- 65%. No regional wall motion abnormalities are evident. Doppler suggests normal left ventricular diastolic function. Left atrium, right atrium, right ventricle of normal size with grossly preserved right ventricular systolic force. 4. No pericardial fusion. 5. Appearance of inferior vena cava suggests normal central venous pressure. CONCLUSIONS: 1. Aortic valve sclerosis without significant stenosis. 2. Trace mitral regurgitation and trace tricuspid regurgitation. 3. Estimated systolic PA pressure by Doppler 45 mmHg suggesting mild to moderate pulmonary hypertension. 4. Normal left ventricular function without wall motion abnormality evident.
[2016-06-09] MEDS ORDERED: SOLU-MEDROL IV SCH (18:24)
--- NOTE | 2016-06-10 01:14 | DISCHARGE SUMMARY ---
ADMISSION DATE: 06/06/2016 DISCHARGE DATE: 06/09/2016 ADMISSION DIAGNOSES: 1. Chest pain syndrome in a patient with known coronary artery disease. 2. Uncontrolled diabetes type 1, aggravated by steroid treatment. 3. Hypertension. 4. Hyperlipidemia. 5. Seasonal allergic rhinitis. 6. Acute bronchitis. 7. Hypothyroidism. 8. Peripheral artery disease. DISCHARGE DIAGNOSES: 1. Chest pain syndrome, in a patient with coronary artery disease, improved. 2. DKA in a known diabetes type 1 patient with uncontrolled diabetes, that has been aggravated by steroid treatment. 3. Bilateral pneumonia. 4. Acute respiratory failure. 5. Hypertension. 6. Hyperlipidemia. 7. Seasonal allergic rhinitis. 8. Acute bronchitis. 9. Hypothyroidism. 10. Peripheral artery disease. SUMMARY OF FINDINGS: This is a 50-year-old, female, who has known coronary artery disease, status post 6 stents in the past, who presented with a 3 hour episode a retrosternal chest pain radiating to her jaw, associated with tightness of her throat. She denied any shortness of breath, palpitations, nausea, vomiting, diaphoresis. No antecedent leg swelling or pain, and no orthopnea PND. States that 2 days prior to arrival, she was seen at an urgent care center and diagnosed with bronchitis, and had been given an Z-Robert and steroids. States that she has been having polyuria, polydipsia along with this, but not very severe. She has also been coughing up yellowish sputum, and had a subjective low-grade fever. So, she was initially admitted to the intensive care unit. We did serial cardiac enzymes and ruled out any cardiac event. She continued her home medications. Cardiology was consulted, and saw her on 06/07/2016. It was felt that she would need a stress test. We scheduled that for 06/08/2016, but yesterday morning she was feeling nauseated and requested that test to be put off. So, we canceled it yesterday, and rescheduled it for this morning. When we arrived this morning, the patient was noted to be in some mild respiratory distress initially. She was noted to have a bump in her proBNP. When we checked it on 06/06/2016, on the day of arrival, she was a proBNP of 147. We rechecked that this morning, and she was at 2819. She had a sodium of 129, potassium was 5.2, chloride was 90, CO2 was 4, BUN of 27, with a creatinine of 1.3. Her blood sugar was 293 at that time. She was placed initially on a Ventimask at 50%. She continued to have increased work of breathing, and so we checked a blood gas that gave us a pH of 7.038, pCO2 of 16, and O2 of 125, and a bicarb of 5.5. We transferred her to our intensive care unit, and we spoke with [facility], and Dr. Virk, the weaving instructor instrumentation controls engineer at [facility], who felt that at that time she had increased work of breathing and respirations were anywhere from 30 to 34. He felt that she needed to be intubated prior to being transported for stabilization. Discussed this with the attending and with family, who wanted to try the patient on BiPAP for 30 minutes to an hour prior to considering intubation. We did that, and she has improved. She has had decreased work of breathing. Her respirations are now 24 to 28, and we checked labs again this afternoon. We found that her sodium to be 131, potassium 4.6, chloride 92, CO2 of 5, BUN is 28, with a creatinine of 1.3. We checked an acetone level, and it was noted to be large. So, she has been started on our DKA protocol and insulin drip. I spoke back with [facility], and Dr. Virk, explained the changes in the patient's condition, and what we had done with her Bi-PAP, and that she had improved. He was in agreement that she was improved, that she was not using her accessory muscles, and she had slowed her respirations down, and he was in agreement to allow her to transfer to the [facility] at this time for further evaluation and treatment. As at this time, [facility] does not have any pulmonology coverage, and there are no beds available at [facility] at this time, and so she will be transferred to MICU for further evaluation and treatment at [facility]. Family has been notified and all are in agreement. She will continue her medications as ordered here at this time until she is under the care of Dr. Vikr. The patient was also noted on chest x-ray today to have development of dense bilateral multifocal infiltrates, and we discontinued the doxycycline 100 mg p.o. b.i.d., as she stated that was causing her nausea, and she was refusing. She was placed on Rocephin 1 gram IV q.24, Zithromax 500 IV q.24, placed on DuoNeb's q.4 hours, and q.2 p.r.n., and she will remain on BiPAP during her transport. Dictated by EMELI Bowles for Domenic Hawk MD
== END 2016-06-09 18:50 | disposition short-term general hospital (02) | DRG 302 ==
LOC: ED 17:22 → EDIPHOLD 20:00 → P.ICU 06-07 01:05 → P.MEDSURG 06-08 19:51 → P.ICU 06-09 13:51
PROVIDERS: ATTEND Family Medicine
DX: I25.119 Atherosclerotic heart disease of native coronary artery with unspecified angina pectoris (principal); E10.10 Type 1 diabetes mellitus with ketoacidosis without coma; J96.00 Acute respiratory failure, unspecified whether with hypoxia or hypercapnia; J18.9 Pneumonia, unspecified organism; J20.9 Acute bronchitis, unspecified; E10.51 Type 1 diabetes mellitus with diabetic peripheral angiopathy without gangrene; I25.2 Old myocardial infarction; I10 Essential (primary) hypertension; Z95.5 Presence of coronary angioplasty implant and graft; E03.9 Hypothyroidism, unspecified; T38.0X5A Adverse effect of glucocorticoids and synthetic analogues, initial encounter; E78.5 Hyperlipidemia, unspecified; J30.2 Other seasonal allergic rhinitis; Z82.49 Family history of ischemic heart disease and other diseases of the circulatory system; Z83.3 Family history of diabetes mellitus; Z80.8 Family history of malignant neoplasm of other organs or systems; L40.9 Psoriasis, unspecified; E66.3 Overweight; Z68.32 Body mass index [BMI] 32.0-32.9, adult; Z79.899 Other long term (current) drug therapy; Z79.82 Long term (current) use of aspirin; Z79.02 Long term (current) use of antithrombotics/antiplatelets; Z96.41 Presence of insulin pump (external) (internal)
CPT/HCPCS: 71020; 80048; 80053; 80061; 81001; 82009; 82550; 82805; 82948; 83036; 83721; 83735; 83880; 84443; 84484; 85025; 85027; 85379; 85610; 85730; 93005; 93306; 94640; 94660; 94761; 96365; 96372; 96375; J0456; J0696; J1650; J1815; J1940; J2060; J2270; J2405; J2765; J2930; J3411; J7030